=== PATIENT | female | born 1955 | race Caucasian/White ===

== ENCOUNTER 2016-03-14 10:03 | Emergency (ER) | payer OTHER ==
[~2016-03-14] VITALS: Wt 90.5 kg
[~2016-03-14 10:03] MED LIST: BENA10TA48 PO; DOCU-144 PO; HYDR-3498 PO; NYST15CR16 TOP; ONDA4TAB35 PO
[2016-03-14] MEDS ORDERED: NPH10OT LEFT EAR (12:16)
[2016-03-14] MEDS ORDERED: IBUP-1542 PO (12:16)
--- NOTE | 2016-03-14 12:20 | ERD ---
ER Documentation Chief Complaint Date/Time DATE: 03/14/16 TIME: 12:19 Chief Complaint LEFT EAR PAIN, ONSET 2 WEEKS HPI This 60-year-old female complains of left ear discomfort last 2 weeks. She was sent by her PCP for possible foreign body. She denies fevers, bleeding, discharge, additional complaints. She does give a history of possible insect fine urinary ear 2 weeks ago. ROS All systems reviewed and are negative except as per history of present illness. Medications Home Meds Active Scripts Ibuprofen* (Motrin*) 600 Mg Tab, 600 MG PO Q6, #15 TAB Prov:ARCELIA LINCOLN MD 03/14/16 Neomycin/Polymyxin/Hydrocort* (Cortisporin* Otic) 10 Ml Susp, 4 DROP LEFT EAR QID for 7 Days, EA Prov:ARCELIA LINCOLN MD 03/14/16 Nystatin-Triamcinolone* (Nystatin-Triamcinolone* Cream) 15 Gm Cream.gm., 1 APPLIC TOP BID for 7 Days, TUB Prov:MARIELOS REED PA-C 02/01/16 Docusate Sodium* (Colace*) 100 Mg Capsule, 100 MG PO TID, #30 Prov:DESTINY ROBERTSON MD 10/21/14 Ondansetron Hcl* (Zofran* ODT) 4 mg -ODT Tab.disper, 4 MG PO Q4H Y for NAUSEA AND OR VOMITING, #30 TAB Prov:DESTINY ROBERTSON MD 10/21/14 Hydrocodone Bit-Acetaminophen* (Norman*) 5-325 Mg Tab, 1 TAB PO Q6 Y for PAIN, # 7 TAB Prov:DESTINY ROBERTSON MD 10/21/14 Reported Medications Benazepril Hcl* (Benazepril Hcl*) 10 Mg Tablet, 10 MG PO DAILY, TAB 10/21/14 Allergies Allergies: Coded Allergies: No Known Allergy (Unverified , 10/21/14) PMhx/Soc History of Surgery: No Anesthesia Reaction: No Hx Neurological Disorder: No Hx Respiratory Disorders: No Hx Cardiac Disorders: Yes (htn, hyperlipids) Hx Miscellaneous Medical Probl: No Hx Alcohol Use: No Hx Substance Use: No Hx Tobacco Use: No Smoking Status: Never smoker Physical Exam Vitals Vital Signs Date Time Temp Pulse Resp B/P Pulse Ox O2 Delivery O2 Flow Rate FiO2 1/2/17 10:09 97.2 61 18 132/72 98 Physical Exam Const: [] Alert, [id number]. Head: Atraumatic Eyes: Normal Conjunctiva ENT: Normal External Ears, Nose and Mouth. Right TM occluded by wax. Left external auditory canal shows appears to be likely a insect. TMs normal. There is some slight irritation of the canal. Neck: Full range of motion..~ No meningismus. Resp: Clear to auscultation bilaterally Cardio: Regular rate and rhythm, no murmurs Abd: Soft, non tender, non distended. Normal bowel sounds Skin: No petechiae or rashes Back: No midline or flank tenderness Ext: No cyanosis, or edema Neur: Awake and alert Psych: Normal Mood and Affect Results 24 hrs Current Medications Medications (Trade) Dose Ordered Sig/Esau Route PRN Reason Start Time Stop Time Status Last Admin Dose Admin Ibuprofen (Motrin) 600 mg ONCE ONCE PO 03/14/16 12:30 03/14/16 12:31 03/14/16 12:16 Procedures/MDM Right ear was lavaged and TM was normal after lavage. Left ear was lavaged. Most of the insect was removed. TM was normal after lavage. Patient presents with insect foreign body left ear without signs of perforation, the insect was mostly removed. Patient was treated with Cortisporin and further observation at home. Patient should return for bleeding, fevers, swelling, redness, new or worsening symptoms with primary care doctor. Departure Diagnosis: Primary Impression: Foreign body in ear Encounter type: initial encounter Laterality: left Qualified Code: T16.2XXA - Foreign body in ear, left, initial encounter Additional Impression: Cerumen impaction Laterality: right Qualified Code: H61.21 - Impacted cerumen of right ear Condition: Stable Patient Instructions: Cerumen Impaction, Home Care, Foreign Body, Ear Canal ( Removed) Additional Instructions: hay poquito mas de insecto. Cheque otro vez con espino doctor primario en el proximo fischer or regresa para mas o nueva simptomas. ARCELIA LINCOLN MD Mar 14, 2016 12:20
[2016-03-14] MEDS ORDERED: IBUPROFEN 600 MG TAB PO ONE (12:30)
== END 2016-03-14 12:20 | disposition home or self-care (01) ==
LOC: FTE 10:03
DX: T16.1XXA Foreign body in right ear, initial encounter (principal); H61.21 Impacted cerumen, right ear; I10 Essential (primary) hypertension; X58.XXXA Exposure to other specified factors, initial encounter; Y92.9 Unspecified place or not applicable
CPT/HCPCS: 69209; Z7502; Z7610

== ENCOUNTER 2016-10-30 14:26 | Emergency (ER) | payer OTHER ==
[~2016-10-30] VITALS: Ht 134.6 cm; Wt 90.5 kg
[~2016-10-30 14:26] MED LIST changes: +IBUP-1542 PO; +NPH10OT LEFT EAR
[2016-10-30 14:29] VITALS: Ht 134.6 cm; Wt 90.5 kg
[2016-10-30] MEDS ORDERED: CEFTRIAXONE 1 GM/50 ML (PMX) 50 ML IVPB STA (14:52)
[2016-10-30] MEDS ORDERED: KETOROLAC 30 MG INJ IV STA (14:52)
[2016-10-30] MEDS ORDERED: SOD CHLORIDE 0.9% 1,000 ML IV STA ×2 (14:52→15:54)
[2016-10-30] MEDS ORDERED: ACETAMINOPHEN 500 MG TAB PO STA (14:52)
[2016-10-30] MEDS ORDERED: AZITHROMYCIN 500MG/NS (PMX) 250 ML IV STA (14:52)
[2016-10-30] MEDS ORDERED: IPRATROPIUM (NEB) 0.5 MG/2.5 ML AMP INH ONE (15:00)
[2016-10-30] MEDS ORDERED: ALBUTEROL 0.083% (NEB) 2.5 MG/3 ML AMP INH ONE (15:00)
--- NOTE | 2016-10-30 15:02 | ERA ---
ER Documentation Chief Complaint Date/Time DATE: 10/30/16 TIME: 14:58 Chief Complaint Complains of fever and cough x 3 days with headache HPI 61-year-old female who is very pleasant. She describes approximately 24 hours of symptoms that include generalized malaise, myalgias, gradual onset headache and cough that is slightly productive of yellowish sputum. No significant shortness of breath no pleuritic pain no recent travel or immobilization. Symptoms are moderate currently. ROS All systems reviewed and are negative except as per history of present illness. Medications Home Meds Active Scripts Ibuprofen* (Motrin*) 800 Mg Tab, 800 MG PO Q6H Y for PAIN AND OR ELEVATED TEMP, #30 TAB Prov:KEYLA VALVERDE MD 10/30/16 Amoxicillin* (Amoxicillin*) 500 Mg Cap, 1000 MG PO TID for 7 Days, CAP Prov:KEYLA VALVERDE MD 10/30/16 Azithromycin* (Zithromax*) 250 Mg Tablet, 250 MG PO DAILY for 4 Days, TAB Prov:KEYLA VALVERDE MD 10/30/16 Albuterol Sulfate* (Ventolin HFA*) 18 Gm Hfa.aer.ad, 2 PUFF INHALATION Q4H, #1 INHALER Prov:KEYLA VALVERDE MD 10/30/16 Reported Medications Simvastatin* (Zocor*) 10 Mg Tablet, 10 MG PO DAILY, #30 TAB 10/30/16 Benazepril Hcl* (Benazepril Hcl*) 10 Mg Tablet, 10 MG PO DAILY, TAB 10/21/14 Discontinued Scripts Ibuprofen* (Motrin*) 600 Mg Tab, 600 MG PO Q6, #15 TAB Prov:ARCELIA LINCOLN MD 03/14/16 Neomycin/Polymyxin/Hydrocort* (Cortisporin* Otic) 10 Ml Susp, 4 DROP LEFT EAR QID for 7 Days, EA Prov:ARCELIA LINCOLN MD 03/14/16 Nystatin-Triamcinolone* (Nystatin-Triamcinolone* Cream) 15 Gm Cream.gm., 1 APPLIC TOP BID for 7 Days, TUB Prov:MARIELOS REED PA-C 02/01/16 Docusate Sodium* (Colace*) 100 Mg Capsule, 100 MG PO TID, #30 Prov:DESTINY ROBERTSON MD 10/21/14 Ondansetron Hcl* (Zofran* ODT) 4 mg -ODT Tab.disper, 4 MG PO Q4H Y for NAUSEA AND OR VOMITING, #30 TAB Prov:DESTINY ROBERTSON MD 10/21/14 Hydrocodone Bit-Acetaminophen* ([place]*) 5-325 Mg Tab, 1 TAB PO Q6 Y for PAIN, # 7 TAB Prov:DESTINY ROBERTSON MD 10/21/14 Allergies Allergies: Coded Allergies: No Known Allergy (Unverified , 10/30/16) PMhx/Soc History of Surgery: No Anesthesia Reaction: No Hx Neurological Disorder: No Hx Respiratory Disorders: No Hx Cardiac Disorders: Yes (htn, hyperlipids) Hx Miscellaneous Medical Probl: No Hx Alcohol Use: No Hx Substance Use: No Hx Tobacco Use: No FmHx Family History: No diabetes Physical Exam Vitals Vital Signs Date Time Temp Pulse Resp B/P Pulse Ox O2 Delivery O2 Flow Rate FiO2 10/30/16 17:08 97.9 103 21 128/56 99 10/30/16 15:20 120 21 140/72 99 10/30/16 15:04 110 18 97 21 10/30/16 14:29 101.1 119 20 140/67 98 Physical Exam General: Well developed, well nourished, no acute distress Head: Normocephalic, atraumatic. Eyes: Pupils equally reactive, EOM intact ENT: Moist mucous membranes Neck: Supple, no lymphadenopathy Respiratory: Rales and rhonchi at the left base, no respiratory distress Cardiovascular: Slight tachycardia, no murmurs, rubs, or gallops Abdominal: Soft, non-tender, non-distended, no peritoneal signs : Deferred MSK: No edema, no unilateral swelling, 5/5 strength Neurologic: Alert and oriented, moving all extremities, normal speech, no focal weakness, no cerebellar signs Skin: No rash Psych: Normal mood Result Diagram: 10/30/16 1500 10/30/16 1500 Results 24 hrs Laboratory Tests Test 10/30/16 14:40 10/30/16 14:45 10/30/16 15:00 Urine Color YELLOW Urine Clarity CLEAR Urine pH 6.0 Urine Specific [place] 1.019 Urine Ketones NEGATIVEmg/dL Urine Nitrite NEGATIVEmg/dL Urine Bilirubin NEGATIVEmg/dL Urine Urobilinogen NEGATIVEmg/dL Urine Leukocyte Esterase NEGATIVELeu/ul Urine Microscopic RBC 10/HPF Urine Microscopic WBC 1/HPF Urine Squamous Epithelial Cells FEW/HPF Urine Mucus FEW/HPF Urine Hemoglobin 2+mg/dL Urine Glucose NEGATIVEmg/dL Urine Total Protein NEGATIVEmg/dl Lactic Acid Level 1.5mmol/L White Blood Count 17.310^3/ul Red Blood Count 4.5710^6/ul Hemoglobin 14.1g/dl Hematocrit 41.6% Mean Corpuscular Volume 91.0fl Mean Corpuscular Hemoglobin 30.9pg Mean Corpuscular Hemoglobin Concent 33.9g/dl Red Cell Distribution Width 13.0% Platelet Count 79753^3/UL Mean Platelet Volume 9.6fl Neutrophils % 83.7% Lymphocytes % 9.1% Monocytes % 4.7% Eosinophils % 1.7% Basophils % 0.3% Nucleated Red Blood Cells % 0.0/100WBC Neutrophils # (Manual) 1410^3/ul Lymphocytes # 1.610^3/ul Monocytes # 0.810^3/ul Eosinophils # 0.310^3/ul Basophils # 0.110^3/ul Nucleated Red Blood Cells # 0.010^3/ul Sodium Level 140mmol/L Potassium Level 3.8mmol/L Chloride Level 103mmol/L Carbon Dioxide Level 27mmol/L Anion Gap 14 Blood Urea Nitrogen 16mg/dl Creatinine 0.77mg/dl Glucose Level 127mg/dl Calcium Level 9.7mg/dl Current Medications Medications (Trade) Dose Ordered Sig/Esau Route PRN Reason Start Time Stop Time Status Last Admin Dose Admin Sodium Chloride (NS) 1,000 ml @ 1,000 mls/hr Q1H STAT IV 10/30/16 14:52 10/30/16 15:51 DC 10/30/16 15:12 Albuterol (Proventil 0.083% (Neb)) 2.5 mg ONCE ONCE INH 10/30/16 15:00 10/30/16 15:01 DC 10/30/16 15:03 Ipratropium [employer] 0.5 mg 0.5 mg ONCE ONCE INH 10/30/16 15:00 10/30/16 15:01 DC 10/30/16 15:03 Azithromycin 250 ml @ 250 mls/hr ONCE STAT IV 10/30/16 14:52 10/30/16 15:51 DC 10/30/16 15:57 Ceftriaxone Sodium (Rocephin) 50 ml @ 100 mls/hr ONCE STAT IVPB 10/30/16 14:52 10/30/16 15:21 DC 10/30/16 15:11 Ketorolac Tromethamine (Toradol) 15 mg ONCE STAT IV 10/30/16 14:52 10/30/16 14:53 DC 10/30/16 15:11 Acetaminophen 1000 mg 1,000 mg ONCE STAT PO 10/30/16 14:52 10/30/16 14:53 DC 10/30/16 15:11 Sodium Chloride (NS) 1,000 ml @ 1,000 mls/hr Q1H STAT IV 10/30/16 15:54 10/30/16 16:53 DC 10/30/16 16:00 Procedures/MDM EKG, MONITORS, & DIAGNOSTIC IMAGING: EKG: I reviewed and interpreted a 12-lead EKG. Rhythm: Normal sinus rhythm Ectopy: None Intervals: No abnormalities ST segments: No elevations or depressions T waves: No contiguous inversions Chest x-ray: I reviewed and interpreted a 1 view of the chest Mediastinum: No enlargement Cardiac silhouette: No cardiomegaly Airspace: Clear lung farris bilaterally without evidence of pneumothorax Bones: No evidence of fracture LAB INTERPRETATION: Leukocytosis, normal lactic acid MEDICAL DECISION MAKING: The patient presents with cough that is productive and a fever. Her clinical exam is consistent with likely community-acquired pneumonia. The patient does have a fever here in the emergency room and meets SIRS criteria. Sepsis screening will be initiated. However, the patient is very well-appearing without significant hypoxia or increased work of breathing. Her curb 65 score is 0 placing her in the low risk group with only 0.6% 30 day mortality. For this reason I believe outpatient management would be very appropriate. The patient will benefit however, for breathing treatment, antipyretics and blood cultures with empiric antibiotics in the form of ceftriaxone and azithromycin. ER COURSE: The patient's tachycardia improved with 2 L of saline. She was given antipyretics. She was given antibiotics. Based on the patient's low risk profile improved symptomatology and normal vital signs a believe outpatient management would be appropriate. I did discuss return precautions and the patient verbalizes understanding. I kept the patient and/or family informed of laboratory and diagnostic imaging results throughout the emergency room course. DISPOSITION PLAN: We discussed follow up with the patient's primary care doctor within 24 to 48 hours as needed. We also discussed return to the emergency room for worsening symptoms or worsening condition. Outpatient referral: [None required] Discharge Medications: Azithromycin, amoxicillin, Ventolin, Motrin Departure Diagnosis: Primary Impression: Community acquired pneumonia Condition: Stable KEYLA VALVERDE MD Oct 30, 2016 15:01
[2016-10-30 15:10] LABS: BASOPHIL # 0.1 10^3/ul (0.0-0.1); BASOPHILS % 0.3 % (0.0-2.0); EOSINOPHILS # 0.3 10^3/ul (0.0-0.5); EOSINOPHILS % 1.7 % (0.0-7.0); HEMATOCRIT 41.6 % (37.0-47.0); HEMOGLOBIN 14.1 g/dl (12.0-16.0); LYMPHOCYTES # 1.6 10^3/ul (0.8-2.9); LYMPHOCYTES % 9.1 % (15.0-51.0); MEAN CORPUSCULAR HEMOGLOBIN 30.9 pg (29.0-33.0); MEAN CORPUSCULAR HGB CONC 33.9 g/dl (32.0-37.0); MEAN PLATELET VOLUME 9.6 fl (7.4-10.4); MONOCYTE # 0.8 10^3/ul (0.3-0.9); MONOCYTES % 4.7 % (0.0-11.0); NEUTROPHILS % 83.7 % (39.0-77.0); PLATELET COUNT 243 10^3/UL (140-415); RED BLOOD COUNT 4.57 10^6/ul (4.20-5.40); WHITE BLOOD COUNT 17.3 10^3/ul (4.8-10.8)
[2016-10-30 15:28] LABS: CALCIUM 9.7 mg/dl (8.4-10.2); CREATININE 0.77 mg/dl (0.44-1.00); POTASSIUM 3.8 mmol/L (3.5-5.1)
[2016-10-30] MEDS ORDERED: SIMV10TA PO (15:29)
[2016-10-30 15:30] LABS: ADD UMIC YES; UR ASCORBIC ACID NEGATIVE (NEGATIVE); UR BILIRUBIN (Dip) NEGATIVE (NEGATIVE); UR BLOOD (Dip) 2+ mg/dL (NEGATIVE); UR CLARITY CLEAR (CLEAR); UR COLOR YELLOW (YELLOW); UR GLUCOSE (Dip) NEGATIVE (NEGATIVE); UR KETONES (Dip) NEGATIVE (NEGATIVE); UR LEUKOCYTE ESTERASE (Dip) NEGATIVE Leu/ul (NEGATIVE); UR MUCUS FEW /HPF (NONE SEEN); UR NITRITE (Dip) NEGATIVE (NEGATIVE); UR RBC 10 /HPF (0-5); UR SPECIFIC GRAVITY (Dip) 1.019 (1.003-1.030); UR SQUAMOUS EPITHELIAL CELL FEW /HPF (FEW); UR TOTAL PROTEIN (Dip) NEGATIVE (NEGATIVE); UR UROBILINOGEN (Dip) NEGATIVE (NEGATIVE)
--- NOTE | 2016-10-30 15:46 | RADRPT ---
PROCEDURE: XR Chest. CLINICAL INDICATION: Shortness of breath TECHNIQUE: AP view of the chest was performed. COMPARISON: None. FINDINGS: The lungs are clear. The lung volumes are normal. The heart size is normal. The osseous structure s are intact. IMPRESSION: No radiographic evidence for acute cardiopulmonary disease RPTAT: QQ .Ivan Mcnally MD, Date Time Electronically viewed and signed by .Ivan Mcnally MD, on 10/30/2016 15:45 .M/
[2016-10-30] MEDS ORDERED: AZIT250T94 PO (16:07)
[2016-10-30] MEDS ORDERED: IBUP800T25 PO (16:07)
[2016-10-30] MEDS ORDERED: ALBU18HF INHALATION (16:07)
[2016-10-30] MEDS ORDERED: AMO500 PO (16:07)
[2016-10-30 18:05] VITALS: BP 108/48; PULSE 87; RESP 20; TEMP 98
== END 2016-10-30 18:06 | disposition home or self-care (01) ==
LOC: E/R 14:26
DX: J18.9 Pneumonia, unspecified organism (principal); I10 Essential (primary) hypertension
CPT/HCPCS: 36415; 71010; 80048; 81001; 83605; 85025; 87040; 94664; 96361; 96365; 96367; 96375; J0456; J0696; J1885; J7030; Z7502; Z7610

== ENCOUNTER 2016-12-25 14:54 | Emergency (ER) | payer OTHER ==
[~2016-12-25] VITALS: Ht 157.5 cm; Wt 91.5 kg
[~2016-12-25 14:54] MED LIST changes: +ALBU18HF INHALATION; +AMOX500C2 PO; +AZIT250T94 PO; -DOCU-144 PO; -HYDR-3498 PO; -IBUP-1542 PO; +IBUP800T25 PO; -NPH10OT LEFT EAR; -NYST15CR16 TOP; -ONDA4TAB35 PO; +SIMV10TA PO
[2016-12-25 14:58] VITALS: Ht 157.5 cm; Wt 91.5 kg
--- NOTE | 2016-12-25 15:31 | ERD ---
ER Documentation Chief Complaint Date/Time DATE: 12/25/16 TIME: 15:25 Chief Complaint WOKE UP WITH RT FOOT PAIN ANS SWELLING ON ANKLE HPI 60-year-old female who presents emergency department for right foot pain. Daughter stated that she noticed that her mom was limping and complaining of right foot pain this morning. Denies headache, dizziness, blurry vision, neck pain, shoulder pain, chest pain , back pain, abdomen, nausea, vomiting, constipation, dysuria, urinary symptoms , direct trauma, numbness or tingling sensation, fever, chills. Known drug allergies. Past medical history of hypertension and hyperlipidemia. Surgery: Denies. Medication: Simvastatin and benazepril. 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 Denies smoking, use of alcoholic beverages, use of illegal drugs. ROS All systems reviewed and are negative except as per history of present illness. Medications Home Meds Active Scripts Naproxen* (Naprosyn*) 500 Mg Tablet, 500 MG PO BID Y for PAIN AND/OR INFLAMMATION, #20 TAB Prov:NOE DOUGLAS 12/25/16 Cyclobenzaprine Hcl* (Cyclobenzaprine Hcl*) 10 Mg Tablet, 10 MG PO Q12 Y for PAIN, #15 TAB Prov:NOE DOUGLAS 12/25/16 Ibuprofen* (Motrin*) 800 Mg Tab, 800 MG PO Q6H Y for PAIN AND OR ELEVATED TEMP, #30 TAB Prov:KEYLA VALVERDE MD 10/30/16 Amoxicillin* (Amoxicillin*) 500 Mg Cap, 1000 MG PO TID for 7 Days, CAP Prov:KEYLA VALVERDE MD 10/30/16 Azithromycin* (Zithromax*) 250 Mg Tablet, 250 MG PO DAILY for 4 Days, TAB Prov:KEYLA VALVERDE MD 10/30/16 Albuterol Sulfate* (Ventolin HFA*) 18 Gm Hfa.aer.ad, 2 PUFF INHALATION Q4H, #1 INHALER Prov:KEYLA VALVERDE MD 10/30/16 Reported Medications Simvastatin* (Zocor*) 10 Mg Tablet, 10 MG PO DAILY, #30 TAB 10/30/16 Benazepril Hcl* (Benazepril Hcl*) 10 Mg Tablet, 10 MG PO DAILY, TAB 10/21/14 Allergies Allergies: Coded Allergies: No Known Allergy (Unverified , 10/30/16) PMhx/Soc History of Surgery: No Anesthesia Reaction: No Hx Neurological Disorder: No Hx Respiratory Disorders: No Hx Cardiac Disorders: Yes (htn, hyperlipids) Hx Miscellaneous Medical Probl: No Hx Alcohol Use: No Hx Substance Use: No Hx Tobacco Use: No Physical Exam Vitals Vital Signs Date Time Temp Pulse Resp B/P Pulse Ox O2 Delivery O2 Flow Rate FiO2 12/25/16 17:19 73 16 130/70 98 Room Air 12/25/16 14:58 97.4 90 18 144/87 97 Physical Exam Const: [] Head: Atraumatic Eyes: Normal Conjunctiva ENT: Normal External Ears, Nose and Mouth. Neck: Full range of motion..~ No meningismus. Resp: Clear to auscultation bilaterally Cardio: Regular rate and rhythm, no murmurs Abd: Soft, non tender, non distended. Normal bowel sounds Skin: No petechiae or rashes Back: No midline or flank tenderness Ext: No cyanosis, or edema. Bilateral hips are stable and unremarkable. Left lower extremity is stable and unremarkable. Right foot has mild swelling medially and on superior area. Right pedal pulse is unremarkable. Right ankle is unremarkable. Right knee is unremarkable. No calf tenderness bilaterally. No neurovascular deficits. Neur: Awake and alert Psych: Normal Mood and Affect Results 24 hrs Current Medications Medications (Trade) Dose Ordered Sig/Esau Route PRN Reason Start Time Stop Time Status Last Admin Dose Admin Ketorolac Tromethamine (Toradol) 60 mg ONCE STAT IM 12/25/16 15:37 12/25/16 15:38 DC 12/25/16 16:52 Procedures/MDM 60-year-old female who presents emergency department for right foot pain. Daughter stated that she noticed that her mom was limping and complaining of right foot pain this morning. Denies headache, dizziness, blurry vision, neck pain, shoulder pain, chest pain , back pain, abdomen, nausea, vomiting, constipation, dysuria, urinary symptoms , direct trauma, numbness or tingling sensation, fever, chills. Known drug allergies. Past medical history of hypertension and hyperlipidemia. Surgery: Denies. Medication: Simvastatin and benazepril. 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 Denies smoking, use of alcoholic beverages, use of illegal drugs. Physical exam: Bilateral hips are stable and unremarkable. Left lower extremity is stable and unremarkable. Right foot has mild swelling medially and on superior area. Right pedal pulse is unremarkable. Right ankle is unremarkable. Right knee is unremarkable. No calf tenderness bilaterally. No neurovascular deficits. Neurological deficits. Disease process was explained to the patient and her daughter. They verbalized understanding and agreed with the diagnostic exam, treatment, plan of care. X-ray of the right foot: No acute osseous abnormality. Soft tissue swelling medial to the navicular. Treatment: Toradol IM. Stefano wrap to right foot. Reevaluation: No neurovascular deficits prior to and after the application of Stefano wrap. Differential diagnosis: Fracture versus contusion versus sprain versus septic arthritis versus gouty arthritis versus osteoarthritis versus cellulitis versus foot pain Final diagnosis: Foot contusion. Prescription: Naprosyn Follow-up with primary care physician the next 24-48 hours. PCP to refer patient to orthopedic doctor in the next 48-72 hours if symptoms persist. Come back in the emergency department for any new symptoms or any worsening of symptoms. All questions and concerns are answered. Patient verbalized understanding and agreed with the plan of care. Hemodynamically stable on discharge. Departure Diagnosis: Primary Impression: Foot pain Additional Impression: Foot contusion Condition: Stable Additional Instructions: Follow-up with primary care physician the next 24-48 hours. Come back in the emergency department for any new symptoms or any worsening of symptoms. All questions and concerns are answered. Patient verbalized understanding and agreed with the plan of care. NOE DOUGLAS Dec 25, 2016 15:31
[2016-12-25] MEDS ORDERED: KETOROLAC 60 MG INJ IM STA (15:37)
--- NOTE | 2016-12-25 16:27 | RADRPT ---
PROCEDURE: XR Foot. CLINICAL INDICATION: Pain and swelling TECHNIQUE: Three views of the right foot are available for review. COMPARISON: None available FINDINGS: There is no acute osseous or articular abnormality. No evidence for fracture. Bone mineral density is preserved. The articular surfaces are smooth without evidence of marginal erosions. The soft tis sues are intact without evidence of calcifications. Enthesopathic changes seen at the Achilles inser tion. Type 2 os naviculare with overlying soft tissue swelling. IMPRESSION: 1. No acute osseous abnormality. 2. Soft tissue swelling medial to the navicular. RPTAT: QQ .Mathew Jeffers MD, MD Date Time Electronically viewed and signed by .Mathew Jeffers MD, on 12/25/2016 16:27 .d/
[2016-12-25] MEDS ORDERED: CYCL-319 PO (16:40)
[2016-12-25] MEDS ORDERED: NAPR-260 PO (16:40)
[2016-12-25 17:19] VITALS: BP 130/70; PULSE 73; RESP 16
== END 2016-12-25 17:20 | disposition home or self-care (01) ==
LOC: FTE 14:54
DX: S90.31XA Contusion of right foot, initial encounter (principal); I10 Essential (primary) hypertension; X58.XXXA Exposure to other specified factors, initial encounter; Y92.9 Unspecified place or not applicable
CPT/HCPCS: 73630; 96372; J1885; Z7502

== ENCOUNTER 2017-04-20 17:22 | Emergency (ER) | END 2017-04-20 19:53 | disposition home or self-care (01) ==

== ENCOUNTER 2017-06-25 15:25 | Emergency (ER) | END 2017-06-25 19:25 | disposition left against medical advice (07) ==

== ENCOUNTER 2017-10-13 10:56 | Emergency (ER) | END 2017-10-13 13:21 | disposition home or self-care (01) ==

== ENCOUNTER 2018-08-23 10:13 | Emergency (ER) | payer OTHER ==
[~2018-08-23] VITALS: Ht 149.9 cm; Wt 93.8 kg
[~2018-08-23 10:13] MED LIST changes: +AZIT250T PO; -AZIT250T94 PO; +BENA10TA4 PO; -BENA10TA48 PO; +CYCL10TA7 PO; -IBUP800T25 PO; +IBUP800T48 PO; +NAPR-985 PO; +POLY17PO6 PO; +PROM6.2515 PO
[2018-08-23 10:17] VITALS: BP 134/76; PULSE 100; RESP 22; Ht 149.9 cm; Wt 93.8 kg
[2018-08-23] MEDS ORDERED: DEXAMETHASONE 10 MG/ML 1 ML INJ PO ONE (11:00)
[2018-08-23] MEDS ORDERED: AZIT250T PO (11:27)
[2018-08-23] MEDS ORDERED: PROM5SYR2 PO (11:27)
--- NOTE | 2018-08-23 11:30 | ERD ---
ER Documentation Chief Complaint Chief Complaint cough x 3 weeks HPI 63-year-old female nondiabetic is here with 3 weeks of cough. Cough is dry usually worse at night. She is tried multiple [id number] medications without any relief. No nausea or vomiting. No palpitations chest pain or shortness of breath. ROS All systems reviewed and are negative except as per history of present illness. Medications Home Meds Active Scripts Promethazine HCl/Codeine (Prometh-Codein 6.25-10 mg/5 ml) 5 Ml Syrup, 5 ML PO Q6 , #200 ML Prov:OBIE ZAMAN PA-C 08/23/18 Azithromycin* (Zithromax*) 250 Mg Tablet, 250 MG PO .ZPACK DIRECTED, #6 TAB TAKE 500 MG (2 TABS) THE FIRST DAY THEN 250 MG (1 TAB) DAYS 2-5 Prov:OBIE ZAMAN PA-C 08/23/18 Naproxen* (Naprosyn*) 500 Mg Tablet, 500 MG PO BID PRN for PAIN AND/OR INFLAMMATION, #30 TAB Prov:AGUEDA PÉREZ PA-C 10/13/17 Polyethylene Glycol* (Miralax*) 17 Gm Powd.pack, 17 GM PO DAILY, #7 Prov:AGUEDA PÉREZ PA-C 10/13/17 Promethazine Hcl* (Promethazine Hcl* Syrup) 6.25 Mg/5 Ml Syrup, 6.25 MG PO QHS PRN for COUGH, #120 ML Prov:QUIRINO ELLSWORTH MD 04/20/17 Albuterol Sulfate* (Ventolin HFA*) 18 Gm Hfa.aer.ad, 2 PUFF INHALATION Q4H, #1 INHALER Prov:QUIRINO ELLSWORTH MD 04/20/17 Amoxicillin* (Amoxicillin*) 500 Mg Cap, 500 MG PO TID for 10 Days, CAP Prov:QUIRINO ELLSWORTH MD 04/20/17 Naproxen* (Naprosyn*) 500 Mg Tablet, 500 MG PO BID PRN for PAIN AND/OR INFLAMMATION, #20 TAB Prov:NOE DOUGLAS 12/25/16 Cyclobenzaprine Hcl* (Cyclobenzaprine Hcl*) 10 Mg Tablet, 10 MG PO Q12 PRN for PAIN, #15 TAB Prov:NOE DOUGLAS 12/25/16 Ibuprofen* (Motrin*) 800 Mg Tab, 800 MG PO Q6H PRN for PAIN AND OR ELEVATED TEMP, #30 TAB Prov:KEYLA VALVERDE MD 10/30/16 Amoxicillin* (Amoxicillin*) 500 Mg Cap, 1000 MG PO TID for 7 Days, CAP Prov:KEYLA VALVERDE MD 10/30/16 Azithromycin* (Zithromax*) 250 Mg Tablet, 250 MG PO DAILY for 4 Days, TAB Prov:KEYLA VALVERDE MD 10/30/16 Albuterol Sulfate* (Ventolin HFA*) 18 Gm Hfa.aer.ad, 2 PUFF INHALATION Q4H, #1 INHALER Prov:KEYLA VALVERDE MD 10/30/16 Reported Medications Simvastatin* (Zocor*) 10 Mg Tablet, 10 MG PO DAILY, #30 TAB 10/30/16 Benazepril Hcl* (Benazepril Hcl*) 10 Mg Tablet, 10 MG PO DAILY, TAB 10/21/14 Allergies Allergies: Coded Allergies: No Known Allergy (Unverified , 10/30/16) PMhx/Soc Medical and Surgical Hx: pt denies Medical Hx History of Surgery: No Anesthesia Reaction: No Hx Neurological Disorder: No Hx Respiratory Disorders: No Hx Cardiac Disorders: Yes (htn, hyperlipids) Hx Psychiatric Problems: No Hx Miscellaneous Medical Probl: No Hx Alcohol Use: No Hx Substance Use: No Hx Tobacco Use: No Smoking Status: Never smoker FmHx Family History: No diabetes Physical Exam Vitals Vital Signs Date Temp Pulse Resp B/P (MAP) Pulse Ox O2 O2 Flow FiO2 Time Delivery Rate 08/23/18 99.0 100 22 134/76 96 10:17 (95) Physical Exam INITIAL VITAL SIGNS: Reviewed by me GENERAL: Awake, alert and oriented x 4, well appearing, nontoxic, speaking in full sentences. No acute distress HEAD: Atraumatic NECK: Supple. No masses. Full range of motion. No meningismus. No midline tenderness. RESPIRATORY: Clear to auscultation bilaterally. Symmetric chest wall rise. No wheezing or rales. No accessory muscle use. CV: Regular rate and rhythm. No murmurs, rubs, or gallops. Results 24 hrs Current Medications Medications Dose Sig/Esau Start Time Status Last (Trade) Ordered Route PRN Stop Time Admin Dose Reason Admin 10 mg ONCE ONCE 08/23/18 DC 08/23/18 Dexamethasone PO 11:00 11:07 (Decadron) 08/23/18 11:01 Procedures/MDM 63-year-old female with cough. She was given Decadron here. Chest x-ray is negative. Discharged with cough suppressant and a Z-Julio. Patient counseled regarding my diagnostic impression and care plan. Prior to discharge all qu estions answered. Pt agrees with treatment plan and understands strict return precautions. Pt is instructed to follow up with primary care provider within 24- 48 hours. Precautionary instructions provided including instructions to return to the ER if not improving or for any worsening or changing symptoms or concerns. Departure Diagnosis: Primary Impression: Bronchitis Condition: Stable Patient Instructions: Bronchitis, Antiobiotic Treatment (Adult) Additional Instructions: Llame al doctor MAANA y forest peggy GENNY PARA DENTRO DE 1-2 VIDALES.Dgale a la secretaria que nosotros le instruimos hacer esta genny.Avise o llame si espino condicin se empeora antes de la genny. Regresa aqui si peor o no mejor. OBIE ZAMAN PA-C Aug 23, 2018 11:30
== END 2018-08-23 11:57 | disposition home or self-care (01) ==
LOC: FTE 10:13
DX: J40 Bronchitis, not specified as acute or chronic (principal); I10 Essential (primary) hypertension
CPT/HCPCS: 71045; J1100; Z7502